=== PATIENT | male | born 1970 | race Caucasian/White ===

== ENCOUNTER 2019-08-18 08:53 | Emergency (ER) | payer BC, SELFPAY ==
[2019-08-18 08:59] VITALS: BP 128/64; PULSE 56; RESP 18; TEMP 36.7; O2SAT 100; BMI 33.0
--- NOTE | 2019-08-18 09:15 | CT_ITS ---
PROCEDURE: CT ABDOMEN PELVIS WO CON CLINICAL INDICATION: r flank pain Right flank pain with difficulty urinating COMPARISON: No exams were available for comparison TECHNIQUE: Axial images obtained with sagittal and coronal reformats. All CT scans at the facility use one or more dose reduction, viz: automated exposure control, ma/kV adjustment per patient size (including targeted exams where dose is matched to indication, i.e. head), or iterative reconstruction technique. FINDINGS: LOWER THORAX: There is a 6 mm noncalcified nodule in the right upper lobe inferiorly nonspecific. ABDOMEN & PELVIS: The liver, gallbladder, spleen, adrenal glands, and pancreas have an unremarkable appearance. There is mild right hydronephrosis. There is an 8 mm stone in the right ureteropelvic junction. The ureter is slightly dilated distal to the stone. There is moderate stranding of the right perinephric and peripelvic and periureteral fat. No distal ureteral calculus is evident. There are 2 left renal calculi the largest in the lower pole at 10 mm. There is mild prominence of the left renal pelvis and mild calyceal dilatation on the left. No ureteral calculus evident. There is submucosal fat deposition within the small bowel. This may be seen as sequela from prior infectious/inflammatory process or increased body fat content. No intestinal obstruction or free air. No evidence of appendicitis or diverticulitis. There is a central calcific density within the prostate very slightly to the right of midline. No acute bony anomalies. IMPRESSION: 1. Right hydronephrosis and proximal hydroureter with stranding of the perinephric and periureteral fat. There is an 8 mm stone in the right ureteropelvic junction. The ureter is however dilated distal to the stone. This could be causing some intermittent obstruction. The stranding of the fat could also be related to associated urinary tract infection. No distal ureteral calculus. 2. Left-sided nephrolithiasis with prominent left renal pelvis. 3. Central prostate calcification. This is very slightly to the right of midline and could represent prostate calcification or a stone within the prostatic urethra 4. 6 mm noncalcified right upper lobe nodule. Consider six-month follow-up Dictated by: Dejuan Schuler MD 08/18/2019 10:33 Electronically signed by Dejuan Schuler MD in [place] 08/18/2019 10:33
[2019-08-18 09:25] LABS: Microscopic, Urine URINE MICROSCOPIC (MICROSCOPIC)
[2019-08-18 09:34] LABS: Basophils # 0.1 K/mm3 (0-0.2); Basophils % 0.7 % (0.1-2.0); Eosinophils # 0.2 K/mm3 (0.0-0.4); Eosinophils % 1.2 % (0.1-12.0); Hematocrit 49.7 % (42.0-52.0); Hemoglobin 17.4 g/dL (14.1-18.0); Lymphocytes # 2.9 K/mm3 (0.7-4.5); Lymphocytes % 23.6 % (10-50); Mean Corpuscular HGB Conc 35.1 g/dL (31.8-35.4); Mean Corpuscular Hemoglobin 32.6 pg (27.0-31.2); Mean Corpuscular Volume 92.9 fl (80-94); Mean Platelet Volume 6.9 fl (7.4-10.4); Monocytes % 7.6 % (1.7-9.3); Neutrophils # 8.3 K/mm3 (1.8-7.8); Neutrophils % 66.8 % (37.0-80.0); Platelet Count 345 K/mm3 (142-424); Red Blood Count 5.35 M/mm3 (4.60-6.20); Red Cell Distribution Width 13.8 % (11.5-17.5); White Blood Count 12.5 K/mm3 (4.8-10.8)
[2019-08-18 09:35] LABS: Chloride 101 mmol/L (98-107); Potassium 4.1 mmoL/L (3.5-5.1); Sodium 138 mmol/L (136-145)
[2019-08-18 09:38] LABS: Alanine Aminotransferase 28 U/L (12-78); Albumin Level 4.5 g/dl (3.5-5.0); Albumin/Globulin Ratio 1.6 (1.1-1.8); Alkaline Phosphatase 102 U/L (38-126); Anion Gap 11.1 mEq/L (5-15); Aspartate Amino Transferase 32 U/L (17-59); Bilirubin,Total 0.6 mg/dl (0.2-1.3); Blood Urea Nitrogen 17 mg/dl (9-20); Calcium 9.4 mg/dl (8.4-10.2); Carbon Dioxide 30 mmol/L (22.0-30.0); Creatinine Clearance Estimated 130 mL/min (50-200); Estimated Glomerular Filt Rate 79 ml/min (>60); GFR (African American) 96 ML/MIN (>60); Globulin 2.9 g/dL (1.3-3.2); Glucose 122 mg/dl (74-100); Total Protein,Serum 7.4 g/dl (6.3-8.2)
[2019-08-18 09:39] LABS: Appearance,Urine CLEAR (Clear); Bilirubin,Urine Negative (Negative); Blood, Urine 3+ (Negative); Color,Urine DK YELLOW (Yellow); Glucose,Urine (UA) Negative (Negative); Ketones,Urine Negative (Negative); Leukocyte Esterase,Urine TRACE (Negative); Nitrate,Urine Negative (Negative); Protein,Urine 1+ (Negative); Specific Gravity, Urine 1.025 (1.005-1.030); Urobilinogen,Urine 0.2 EU/dl (0.2)
[2019-08-18 09:40] VITALS: BP 142/78; PULSE 56; RESP 18; O2SAT 98
[2019-08-18 09:52] LABS: Bacteria,Urine 2+ /lpf; Squamous Epithelial Cell,Urine Occasional #/hpf (0-5); WBC,Urine 20-50 #/hpf (0-3)
--- NOTE | 2019-08-18 09:52 | [facility].EDGENADL ---
ED Disposition Clinical Impression: Renal colic on right side UTI (urinary tract infection) Qualifiers: Urinary tract infection type: site unspecified Hematuria presence: without hematuria Qualified Code(s): N39.0 - Urinary tract infection, site not specified Disposition: Home, Self-Care Condition on Discharge: Good Instructions: DI for Kidney Stones Additional Instructions: fluids and use meds as directed and see urology mat Prescriptions: levoFLOXacin [Levaquin 500mg tab] 500 mg PO DAILY #7 tab Prescription Printed Hydrocod/Acet 5/325 mg [Winn 5/325mg tablet] 1 tab PO Q4HP PRN #8 tab PRN Reason: Moderate To Severe Pain Prescription Printed Referrals: Provider,Referral, MD [Primary Care Provider] - - Critical Care Critical Care Time: No Attestation: On 08/18/19, the high probability of a clinically significant, sudden or life threatening deterioration of the following system(s) required my full and direct attention, intervention and personal management. The time I documented below is in addition to time spent performing reported procedures but includes the following listed in this critical care notation. Medical Decision Making - Medical Records Medical records reviewed: Yes: I reviewed the patient's medical records. - Vega Inquiry Pt receiving controlled substance: No Vital Signs: 08/18/19 08:59 08/18/19 09:40 Temperature 98.0 F Temperature Source Oral Pulse Rate [Left Radial] 56 L 56 L Respiratory Rate 18 18 Blood Pressure [Left Arm] 128/64 142/78 H Blood Pressure Mean [Left Arm] 85 99 Blood Pressure Source [Left Arm] Automatic Cuff Blood Pressure Position [Left Arm] Sitting 02 Sat by Pulse Oximetry 100 98 Oxygen Delivery Method Room Air Room Air - Lab Data Lab results reviewed: Yes: I reviewed the patient's lab results. Lab Results 08/18/19 09:00: Urine Color Dk yellow, Urine Appearance Clear, Urine pH 6.0, Ur Specific [place] 1.025, Urine Protein 1+, Urine Glucose (UA) Negative, Urine Ketones Negative, Urine Blood 3+, Urine Nitrate Negative, Urine Bilirubin Negative, Urine Urobilinogen 0.2, Ur Leukocyte Esterase Trace, Urine RBC 5-10, Urine WBC 20-50, Ur Squamous Epith Cells Occasional, Urine Bacteria 2+ 08/18/19 09:20: WBC 12.5 H, RBC 5.35, Hgb 17.4, Hct 49.7, MCV 92.9, MCH 32.6 H, MCHC 35.1, RDW 13.8, Plt Count 345, MPV 6.9 L, Neut % (Auto) 66.8, Lymph % (Auto) 23.6, [place] % (Auto) 7.6, Eos % (Auto) 1.2, Baso % (Auto) 0.7, Neut # (Auto) 8.3 H, Lymph # (Auto) 2.9, [place] # (Auto) 1.0, Eos # (Auto) 0.2, Baso # (Auto) 0.1 08/18/19 09:20: Sodium 138, Potassium 4.1, Chloride 101, Carbon Dioxide 30, Anion Gap 11.1, BUN 17, Creatinine 1.00, Estimated Creat Clear 130, Estimated GFR 79, Est GFR ( Amer) 96, Glucose 122 H, Calcium 9.4, Total Bilirubin 0.6, AST 32, ALT 28, Alkaline Phosphatase 102, Total Protein 7.4, Albumin 4.5, Globulin 2.9, Albumin/Globulin Ratio 1.6 Result diagrams: 08/18/19 09:20 08/18/19 09:20 Orders (Tests/Meds): ED MEDICATIONS Discontinued Medications Generic Name Dose Route Start Last Admin Trade Name Gio PRN Reason Stop Dose Admin Hydromorphone HCl 1 mg 08/18/19 09:29 08/18/19 09:30 Dilaudid 2mg/Ml Syringe IV 08/18/19 09:30 1 mg ONCE ONE Administration Sodium Chloride 1,000 mls @ 999 mls/hr 08/18/19 09:30 08/18/19 09:28 Sod Chlor 0.9% 1000ml Bag IV 08/18/19 10:30 999 mls/hr .Q1H1M NICOLE Administration Ketorolac Tromethamine 30 mg 08/18/19 09:15 08/18/19 09:24 Toradol 30mg/Ml Vial IV 08/18/19 09:16 30 mg ONCE ONE Administration Ondansetron HCl 4 mg 08/18/19 09:15 08/18/19 09:24 Zofran 4mg/2ml Vial IV 08/18/19 09:16 4 mg ONCE ONE Administration ORDERS Category Date Time Status Urine Culture Stat Micro 08/18/19 09:00 Received - CT Data CT Scan: Abdomen, Pelvis Time Received: 10:[address] Reviewed: Yes: I have viewed the radiologist's interpretation Preliminary Findings: Abnormal (
--- NOTE | 2019-08-18 09:55 | PC.NURSE ---
pt to CT
--- NOTE | 2019-08-18 10:04 | PC.NURSE ---
pt return from ct
--- NOTE | 2019-08-18 11:00 | PC.NURSE ---
contacted radiology for a disc for pt
[2019-08-18 11:15] VITALS: BP 147/82; PULSE 51; RESP 18; TEMP 36.7; O2SAT 100
== END 2019-08-18 11:16 | disposition home or self-care (01) ==
PROVIDERS: Emergency Provider Emergency Medicine
DX: N39.0 Urinary tract infection, site not specified (principal); N23 Unspecified renal colic
CPT/HCPCS: 74176; 80053; 81001; 85025; 87086; 96365; 96375; 99283; J2405